=== PATIENT | male | born 1940 | race Asian ===

== ENCOUNTER → 2016-12-01 | Outpatient (CLI) | payer MEDICARE, OTHER ==
[~2016-12-01] MED LIST: BACTDS PO; CEPH500C PO; EZET10TA3 PO; LISI10TA2 PO; VALA500T32 PO
[2016-12-01 15:47] LABS: ADD SCAN DIFF NO
[2016-12-01 15:52] LABS: BASOPHILS % 0.3 % (0.0-2.0); EOSINOPHILS # 0.4 10^3/ul (0.0-0.5); EOSINOPHILS % 3.8 % (0.0-7.0); HEMATOCRIT 44.7 % (42.0-52.0); HEMOGLOBIN 14.8 g/dl (14.0-18.0); LYMPHOCYTES # 2.2 10^3/ul (0.8-2.9); LYMPHOCYTES % 20.6 % (15.0-51.0); MEAN CORPUSCULAR HEMOGLOBIN 34.4 pg (29.0-33.0); MEAN CORPUSCULAR HGB CONC 33.1 g/dl (32.0-37.0); MEAN PLATELET VOLUME 9.5 fl (7.4-10.4); MONOCYTE # 1.4 10^3/ul (0.3-0.9); MONOCYTES % 12.9 % (0.0-11.0); NEUTROPHIL # 6.5 10^3/ul (1.6-7.5); NEUTROPHILS % 62.1 % (39.0-77.0); PLATELET COUNT 162 10^3/UL (140-415); RED CELL DISTRIBUTION WIDTH 12.7 % (11.5-14.5); WHITE BLOOD COUNT 10.5 10^3/ul (4.8-10.8)
[2016-12-01 16:02] LABS: ALBUMIN 3.8 g/dl (3.3-4.9)
[2016-12-01 16:05] LABS: ALBUMIN/GLOBULIN RATIO 1.02; BILIRUBIN,INDIRECT 0.3 mg/dl (0-1.1); BILIRUBIN,TOTAL 0.3 mg/dl (0.2-1.3); CREATININE 1.19 mg/dl (0.61-1.24); TOTAL PROTEIN 7.5 g/dl (6.1-8.1)
[2016-12-01 16:06] LABS: CALCIUM 8.9 mg/dl (8.4-10.2)
--- NOTE | 2016-12-01 22:48 | RADRPT ---
PROCEDURE: XR Chest. CLINICAL INDICATION: Cough. TECHNIQUE: Two views. Frontal and lateral. COMPARISON: Chest x-ray dated 11/10/2014. CT scan of the chest dated 11/16/2014. FINDINGS: The lungs are clear. The heart size is normal. There is calcification in the aorta consistent with atherosclerosis. Ther e is right paratracheal thickening, unchanged from 11/10/2014. There is no pleural effusion. There is no pneumothorax. IMPRESSION: 1. Atherosclerosis. 2. Right paratracheal thickening, unchanged from the chest x-ray dated 11/10/2014. This was due to vascular structures demonstrated on CT scan dated 11/16/2014. 3. Otherwise normal chest x-ray. RPTAT: QQ .Tyler Adams MD, Date Time Electronically viewed and signed by .Tyler Adams MD, on 12/01/2016 22:48 .R/
== END | disposition home or self-care (01) ==
LOC: LAB 15:18
PROVIDERS: ATTEND Internal Medicine
DX: E78.5 Hyperlipidemia, unspecified (principal); I10 Essential (primary) hypertension; R05 Cough
CPT/HCPCS: 71020; 80053; 84153; 84154; 85025

== ENCOUNTER → 2017-03-31 | Outpatient (CLI) | payer MEDICARE, OTHER ==
--- NOTE | 2017-04-01 09:10 | RADRPT ---
PROCEDURE: US bilateral lower extremity arteries. CLINICAL INDICATION: Bilateral leg pain. Claudication that interferes significantly with the alea ent's lifestyle. TECHNIQUE: Multiple longitudinal and transverse images of the bilateral lower extremity arteries w ere obtained with canales scale, pulsed Doppler, and color Doppler imaging. COMPARISON: No prior studies are available for comparison. FINDINGS: Right BUSINESS INTELLIGENCE ETL DEVELOPER:117th cm/sec PSFA:71 cm/sec MSFA:73 cm/sec DSFA:54 cm/sec POP:62 cm/sec GENERAL DISTILLERY WORKER:64 cm/sec DPA:29 cm/sec Left BUSINESS INTELLIGENCE ETL DEVELOPER:113 cm/sec PSFA:83 cm/sec MSFA:89 cm/sec DSFA:16 cm/sec POP:64 cm/sec GENERAL DISTILLERY WORKER:56 cm/sec DPA:33 cm/sec The right ankle-brachial index is 1.1 and the left ankle-brachial index is 1.1. There is normal triphasic flow throughout bilaterally. Minimal plaque formation is present in the c anais arteries with no significant stenosis. IMPRESSION: 1. Mild plaque formation without evidence for hemodynamically significant stenosis or occlusion. RPTAT: QQ .Tyler Adams MD, MD Date Time Electronically viewed and signed by .Tyler Adams MD, MD on 04/01/2017 09:10 .R/
== END | disposition home or self-care (01) ==
LOC: VAS 14:49
PROVIDERS: ATTEND Internal Medicine
DX: M79.662 Pain in left lower leg (principal); M79.661 Pain in right lower leg
CPT/HCPCS: 93922

== ENCOUNTER → 2017-03-31 | Outpatient (CLI) | payer MEDICARE, OTHER ==
--- NOTE | 2017-03-31 17:37 | RADRPT ---
PROCEDURE: XR Right Tibia and Fibula. CLINICAL INDICATION: Right lower leg pain. TECHNIQUE: Two views. Frontal and lateral. COMPARISON: No prior studies are available for comparison. FINDINGS: There is no fracture or dislocation. The soft tissues are normal. There are mild degenerative changes of the right knee. The ankle is grossly normal. There is no lytic or blastic lesion. There is no radiopaque foreign body. IMPRESSION: 1. Mild degenerative changes of the right knee. 2. Otherwise unremarkable images of the right tibia and fibula. RPTAT: QQ .Tyler Adams MD, Date Time Electronically viewed and signed by .Tyler Adams MD, on 03/31/2017 17:37 .R/
--- NOTE | 2017-03-31 17:37 | RADRPT ---
PROCEDURE: Right knee radiographs. CLINICAL INDICATION: Right knee pain. TECHNIQUE: Three views. Weight bearing. Frontal, lateral, and patellar view. COMPARISON: No prior studies are available for comparison. FINDINGS: There is no fracture or dislocation. The soft tissues are normal. the articular surfaces are intact. There are small osteophytes arising from the margins of the mosley lla and there is a superior patellar spur. There is no lytic or blastic lesion. There is no radiopaque foreign body. IMPRESSION: 1. Mild degenerative change. 2. Otherwise unremarkable images of the right knee. RPTAT: QQ .Tyler Adams MD, MD Date Time Electronically viewed and signed by .Tyler Adams MD, on 03/31/2017 17:36 .R/
== END | disposition home or self-care (01) ==
LOC: RAD 15:10
PROVIDERS: ATTEND Specialist
DX: M79.661 Pain in right lower leg (principal)
CPT/HCPCS: 73562; 73590

== ENCOUNTER → 2017-04-01 | Outpatient (CLI) | payer MEDICARE, OTHER ==
--- NOTE | 2017-04-01 17:25 | RADRPT ---
PROCEDURE: XR Lumbar Spine. CLINICAL INDICATION: Back pain. TECHNIQUE: 2 views. Frontal and lateral. COMPARISON: No prior studies are available for comparison. FINDINGS: There is normal stature and alignment of the vertebrae. There is no fracture. There is no lytic or blastic lesion. There is flowing ossification along the anterolateral aspect of at least 7 contiguous lower thoracic and upper lumbar vertebral bodies, with preservation of disk height consistent with diffuse idiopat hic skeletal hyperostosis (DISH). There is calcification in the aorta consistent with atherosclerosis. There is a abdominal aortic an eurysm measuring 5.8 cm. IMPRESSION: 1. Diffuse idiopathic skeletal hyperostosis. 2. No fracture or lytic lesion. 3. Abdominal aortic aneurysm measuring 5.8 cm. Vascular surgery consultation advised. RPTAT: QQ .Tyler Adams MD, MD Date Time Electronically viewed and signed by .Tyler Adams MD, MD on 04/01/2017 17:25 .R/
== END | disposition home or self-care (01) ==
LOC: RAD 10:29
PROVIDERS: ATTEND Specialist
DX: M54.16 Radiculopathy, lumbar region (principal)
CPT/HCPCS: 72100

== ENCOUNTER → 2017-04-20 | Outpatient (CLI) | payer MEDICARE, OTHER ==
[~2017-04-20] MED LIST changes: +IODIXANOL LOCM 100 ML BTL ONE; +SOD CHLORIDE 0.9% 100 ML ONE
[2017-04-20 11:12] LABS: CREATININE 1.31 mg/dl (0.61-1.24)
--- NOTE | 2017-04-21 17:09 | RADRPT ---
PROCEDURE: CT scan of the abdomen and pelvis with contrast. CT angiogram of the abdomen and pelvis . CLINICAL INDICATION: Abdominal and pelvic pain. Abdominal aortic aneurysm. TECHNIQUE: CT scan of the abdomen, and pelvis with contrast was performed with helical axial secti ons. The patient was scanned during intravenous administration of 100 ml of Visipaque 320. 2-D cor onal reformatted images were obtained from the axial source images. In addition, 3-D post processin g was performed. Total exam DLP is 840.18 mGy-cm. CTDIvol is 13.58 mGy. One or more of the follow ing dose reduction techniques were used: Automated exposure control, adjustment of the mA and/or kV according to patient size, use of iterative reconstruction technique. COMPARISON: None available FINDINGS: CT abdomen and pelvis: Mild scarring is present at the lung bases posteriorly. There is also mild emphysematous changes at both lung bases with right worse than left. The lung bases are otherwise normal. There is no pleu ral effusion or pericardial effusion. The heart size is normal. The liver is normal in size and attenuation. There is no focal hepatic lesion. The gallbladder and bile ducts are normal. The spleen is normal in size. There is no focal splenic lesion. The pancreas is normal with no mass or evidence of pancreatitis. Both adrenals are normal with no enlargement or mass. Both kidneys demonstrate normal contrast enhancement. There is no renal mass or hydronephrosis. There is no retroperitoneal lymphadenopathy or mass. There is no pelvic lymphadenopathy or mass. The bladder and distal ureters are normal. The periappendiceal region is unremarkable with no evidence of appendicitis. The bowel and mesentery are normal. There is no free fluid or free gas. CT osseous structures: There are mild degenerative changes of the spine. There is no fracture or lytic lesion. There is c entral spinal stenosis and L4-5. There is thrombus in the wall of the aneurysm. CT angiogram: The proximal abdominal aorta is not dilated. There is a mid to distal abdominal aortic aneurysm yenny suring 4.5 x 4.5 cm in AP and transverse dimensions. The celiac axis, superior mesenteric artery, and inferior mesenteric artery are all well seen and ap pear normal with no stenosis or occlusion. The renal arteries are normal with no stenosis or occlusion. There is a small accessory right renal artery extending to the lower right kidney anteriorly. The right common iliac artery is mildly dilated measuring 1.4 cm. The left common iliac artery is n ormal measuring 1.0 cm. The bilateral external and internal iliac arteries demonstrate mild calcifi ed plaque with no significant stenosis. The bilateral common femoral arteries are also widely paten t. IMPRESSION: 1. Mild scarring at the lung bases posteriorly with mild emphysema at both lung bases posteriorly. Right is worse than left. 2. Mild degenerative changes of the spine. 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 3. Mid to distal abdominal aortic aneurysm measuring 4.5 x 4.5 cm in AP and transverse dimensions. Thrombus in the wall of the aneurysm. 4. Small accessory right renal artery extending to the lower right kidney anteriorly. 5. Mildly dilated right common iliac artery measuring 1.4 cm. 6. Otherwise unremarkable study. RPTAT: VPH .Tyler Adams MD, MD Date Time Electronically viewed and signed by .Tyler Adams MD, MD on 04/21/2017 17:08 .R/
== END | disposition home or self-care (01) ==
LOC: C/S 10:27
PROVIDERS: ATTEND Student in an Organized Health Care Education/Training Program
DX: I71.4 Abdominal aortic aneurysm, without rupture (principal)
CPT/HCPCS: 75635; 82565; 84520; Q9967

== ENCOUNTER 2017-09-09 15:41 | Inpatient (IN) | END 2017-09-13 13:27 | disposition home or self-care (01) | DRG 300 ==